=== PATIENT | male | born 1940 | race Caucasian/White ===

== ENCOUNTER 2023-10-20 12:46 | Outpatient (CLI) | payer MEDICARE | END 2023-10-20 12:47 | disposition home or self-care (01) | LOC: CSHCP 12:46 | PROVIDERS: ATTEND Internal Medicine | DX: R06.09 Other forms of dyspnea (principal); J98.4 Other disorders of lung | CPT/HCPCS: 71046; 94060; 94726; 94729; 94760 ==

== ENCOUNTER 2024-04-13 08:09 | Day surgery (SDC) | payer MEDICARE ==
[2024-04-13 09:03] VITALS: BP 136/76; TEMP 98.6
[2024-04-13] MEDS ORDERED: PROPOFOL 20 ML ONE (10:54)
[2024-04-14] MEDS ORDERED: FLU (Fluad Triv) TS24-25 (65UP)/MF59C/PF 45 MCG/0.5 ML Syringe IM ONE (09:00)
== END 2024-04-13 12:07 | disposition home or self-care (01) ==
LOC: CSHSDC 08:09
PROVIDERS: ATTEND Specialist
PROC: B246ZZ4 Ultrasonography of Right and Left Heart, Transesophageal (ICD-10-PCS; principal; 2024-04-13)
DX: I48.0 Paroxysmal atrial fibrillation (principal); Z95.818 Presence of other cardiac implants and grafts; E10.9 Type 1 diabetes mellitus without complications; I10 Essential (primary) hypertension; E78.5 Hyperlipidemia, unspecified; Z98.890 Other specified postprocedural states; Z79.84 Long term (current) use of oral hypoglycemic drugs; Z79.899 Other long term (current) drug therapy; Z79.01 Long term (current) use of anticoagulants
CPT/HCPCS: 93005; 93312; J2704; 93010